=== PATIENT | female | born 1965 | race African-American/Black ===

== ENCOUNTER 2017-02-15 12:06 | Emergency (ER) | payer OTHER ==
[2017-02-15 12:16] VITALS: BP 141/74; PULSE 80; TEMP 98.2; BMI 28.2
--- NOTE | 2017-02-15 13:39 | PDOC ---
History of Present Illness - General Chief Complaint: Pain, Acute Stated Complaint: SWOLLEN LT ARM Time Seen by Provider: 02/15/17 13:21 History Source: Patient Exam Limitations: No Limitations - History of Present Illness Initial Comments: 02/15/17 14:05 Had lab drawn 2 days ago and [facility], and since that time has had swelling, ecchymoses, and pain to her left forearm extending to her wrist. Discussed case with on the phone who recommended coming to the emergency department for evaluation of possible studies. Patient denies numbness to fingers however has some tenderness to the medial aspect of her hand. Severity: reports: mild, moderate Pain Location: reports: upper extremity (left forearm) Modifying Factors: improves with: None, cold therapy Past History - Travel Traveled outside of the country in the last 30 days: No Close contact w/someone who was outside of country & ill: No - Past Medical History Allergies/Adverse Reactions: Allergies Allergy/AdvReac Type Severity Reaction Status Date / Time No Known Allergies Allergy Verified 02/15/17 12:16 Home Medications: Ambulatory Orders No Home Medications 05/18/13 Docusate Sodium [Colace -] 100 mg PO BID #14 capsule 07/22/15 Ferrous Sulfate [Feosol] 325 mg PO TID #21 tablet 07/22/15 Levofloxacin [Levaquin -] 750 mg PO DAILY #7 tablet 07/22/15 Sodium Chloride Nasal [place] [[place] Nasal [place] -] 2 spray NS TID PRN #1 bottle 07/22/15 Other medical history: PATIENT DENIES MEDICAL HISTORY - Surgical History Abdominal Surgery: (TUBES TIED) Orthopedic Surgery: Yes (rt knee and rt shoulder) - Psycho/Social/Smoking Cessation Hx Anxiety: No Suicidal Ideation: No Smoking Status: No Smoking History: Never smoked Number of Cigarettes Smoked Daily: 0 Hx Alcohol Use: No Drug/Substance Use Hx: No Substance Use Type: None Review of Systems - Review of Systems Able to Perform ROS?: Yes Comments:: 02/15/17 14:09 Is the patient limited Portuguese proficient: Yes Constitutional: Yes: See HPI. No: Symptoms Reported HEENTM: No: Symptoms Reported Respiratory: No: Symptoms reported Musculoskeletal: Yes: Symptoms Reported, See HPI, Joint Swelling Integumentary: Yes: Symptoms Reported Neurological: Yes: Symptoms reported Endocrine: No: Symptoms Reported All Other Systems: Reviewed and Negative *Physical Exam - Vital Signs Last Vital Signs Temp Pulse Resp BP Pulse Ox 98.2 F 80 18 141/74 100 02/15/17 12:13 02/15/17 12:13 02/15/17 12:13 02/15/17 12:13 02/15/17 12:13 - Physical Exam General Appearance: Yes: Nourished, Appropriately Dressed, Apparent Distress, Mild Distress HEENT: positive: [place], Normal ENT Inspection, TMs Normal, Pharynx Normal Neck: positive: Supple Extremity: positive: Normal Capillary Refill, Normal Range of Motion (WITH TENDERNESS TO antecub and extending down to volar wrist. Full range of motion of fingers, strong grasp, flexion and extension against resistance. Neurovascular intact). negative: Normal Inspection Integumentary: positive: Swelling, Ecchymosis, Bruising (hematoma palpable to the volar aspect of the forearm extending from antecubital fossa that to mid forearm approximately 15 cm. Of ecchymoses extending to wrist joint) Neurologic: positive: trauma director II-XII NML intact Progress Note - Progress Note Progress Note: Hematoma left forearm, no evidence of deep vein issue or compartment syndrome, full range of motion . *DC/Admit/Observation/Transfer Diagnosis at time of Disposition: Hematoma - Discharge Dispostion Disposition: HOME Condition at time of disposition: Stable Admit: No - Referrals Referrals: Jung Morales MD [Primary Care Provider] - - Patient Instructions Printed Discharge Instructions: DI for Hematoma (Bruise) Additional Instructions: Rest, ice to area on and off for 15 minutes 4-6 times a day Avoid heavy lifting or exercise until pain and swelling is resolved or until further directed Keep area highly elevated to reduce swelling Use splints/Matthew wrap as directed Followup with orthopedist in one to 2 days if not improving, if significantly improved may wait one week for followup with orthopedist May use ibuprofen 2-200 mg tablets every 6 hours as needed for pain
[2017-02-15] MEDS ORDERED: IBUPROFEN 600 MG TABLET (FP) PO ONE ×2 (13:52→13:54)
== END 2017-02-15 14:10 | disposition home or self-care (01) ==
LOC: JERFT 12:06
DX: L76.32 Postprocedural hematoma of skin and subcutaneous tissue following other procedure (principal); Y84.8 Other medical procedures as the cause of abnormal reaction of the patient, or of later complication, without mention of misadventure at the time of the procedure
CPT/HCPCS: 99281-25

== ENCOUNTER 2022-04-06 04:06 | Emergency (ER) | payer BC ==
[2022-04-06 04:36] VITALS: BMI 29.2
[2022-04-06] MEDS ORDERED: FAMOTIDINE 20 MG/50 ML IVPB 20 MG/50 ML MG IVPB ONE ×2 (04:59→05:40)
[2022-04-06 06:28] LABS: BASO % 0.8 % (0-2.0); EOS % 1.8 % (0-4.5); HEMATOCRIT 35.8 % (32.4-45.2); LYMPH % 38.3 % (8-40); MCH 28.9 pg (25.7-33.7); MCHC 33.4 g/dl (32.0-36.0); MEAN CELL VOLUME 86.3 fl (80-96); MEAN PLT VOLUME 10.7 fl (7.5-11.1); NEUT % 51.1 % (42.8-82.8); PLATELET COUNT 143 10^3/uL (134-434); RBC 4.15 M/mm3 (3.60-5.2); WHITE BLOOD COUNT 4.3 K/mm3 (4.0-10.0)
[2022-04-06 06:29] LABS: INR 1.03 (0.83-1.09); PROTHROMBIN TIME (PATIENT) 11.8 SEC (9.7-13.0)
[2022-04-06 06:32] LABS: ACTIVATED PTT 29.1 SECONDS (25.2-36.5)
[2022-04-06 06:38] LABS: ALBUMIN 3.7 g/dl (3.4-5.0); CALCIUM 9.4 mg/dL (8.5-10.1)
[2022-04-06 06:39] LABS: BLOOD UREA NITROGEN 14.5 mg/dL (7-18); MAGNESIUM 2.2 mg/dL (1.8-2.4)
[2022-04-06 06:42] LABS: CREATININE 0.9 mg/dL (0.55-1.3); PHOSPHOROUS 3.2 mg/dL (2.5-4.9)
[2022-04-06 06:43] LABS: BILIRUBIN,TOTAL 0.3 mg/dL (0.2-1); TOT PROT 7.6 g/dl (6.4-8.2)
[2022-04-06] MEDS ORDERED: methylPREDNISolone NA SUCC 125 MG/2 ML VIAL IVPB ONE (07:03)
[2022-04-06] MEDS ORDERED: methylPREDNISolone NA SUCC 125 MG/2 ML VIAL ONE (08:38)
[2022-04-06 08:46] VITALS: BP 135/55; PULSE 64; RESP 16; TEMP 97.9
== END 2022-04-06 08:47 | disposition home or self-care (01) ==
LOC: JER 04:06
PROC: 3E033NZ Introduction of Analgesics, Hypnotics, Sedatives into Peripheral Vein, Percutaneous Approach (ICD-10-PCS; principal; 2022-04-06)
PROC: 3E033GC Introduction of Other Therapeutic Substance into Peripheral Vein, Percutaneous Approach (ICD-10-PCS; 2022-04-06)
DX: T78.40XA Allergy, unspecified, initial encounter (principal)
CPT/HCPCS: 36415; 70450-TC; 71046-TC-FY; 80053; 83735; 84100; 84484; 85025; 85610; 85730; 93005; 93010; 99285-25

== ENCOUNTER 2022-06-11 03:43 | Emergency (ER) | payer BC ==
[2022-06-11 03:55] VITALS: BP 169/83; PULSE 79; RESP 20; TEMP 97.5; BMI 29.2
[2022-06-11] MEDS ORDERED: FAMOTIDINE 20 MG/50 ML IVPB 20 MG/50 ML MG IVPB ONE ×2 (04:00→04:33)
[2022-06-11] MEDS ORDERED: MAG HYDROX/AL HYDROX/SIMETH -MYLANTA- ORAL SUSPENSION PO ONE (04:00)
[2022-06-11] MEDS ORDERED: ACETAMINOPHEN 1000 MG/100 ML BAG IVPB ONE (04:00)
[2022-06-11] MEDS ORDERED: SODIUM CHLORIDE 0.9% 500 ML INFUS.BAG IV ONE (04:32)
[2022-06-11] MEDS ORDERED: ACETAMINOPHEN INJECTION 100 ML IVPB ONE (04:33)
[2022-06-11] MEDS ORDERED: MAG HYDROX/AL HYDROX/SIMETH 30 ML UNIT-DOSE CUP ONE (04:33)
[2022-06-11 04:48] LABS: BASO % 0.4 % (0-2.0); EOS % 2.1 % (0-4.5); HEMATOCRIT 33.3 % (32.4-45.2); HEMOGLOBIN 11.5 GM/dL (10.7-15.3); MCH 29.2 pg (25.7-33.7); MCHC 34.4 g/dl (32.0-36.0); MEAN CELL VOLUME 84.9 fl (80-96); MEAN PLT VOLUME 9.9 fl (7.5-11.1); MONO % 8.2 % (3.8-10.2); NEUT % 51.3 % (42.8-82.8); PLATELET COUNT 165 10^3/uL (134-434); RBC 3.92 M/mm3 (3.60-5.2); RDW 14.8 % (11.6-15.6); WHITE BLOOD COUNT 4.7 K/mm3 (4.0-10.0)
[2022-06-11 04:54] LABS: INR 1.07 (0.83-1.09); PROTHROMBIN TIME (PATIENT) 12.3 SEC (9.7-13.0)
[2022-06-11 04:57] LABS: ACTIVATED PTT 35.3 SECONDS (25.2-36.5)
[2022-06-11 05:08] LABS: ALBUMIN 3.5 g/dl (3.4-5.0); BLOOD UREA NITROGEN 11.5 mg/dL (7-18); CALCIUM 9.5 mg/dL (8.5-10.1)
[2022-06-11 05:11] LABS: CREATININE 0.8 mg/dL (0.55-1.3)
[2022-06-11 05:13] LABS: BILIRUBIN,TOTAL 0.3 mg/dL (0.2-1); TOT PROT 7.7 g/dl (6.4-8.2)
[2022-06-11] MEDS ORDERED: PANTOPRAZOLE 40 MG TABLET PO ONE ×2 (05:33→05:34)
== END 2022-06-11 05:51 | disposition home or self-care (01) ==
LOC: JER 03:43
PROC: 3E033GC Introduction of Other Therapeutic Substance into Peripheral Vein, Percutaneous Approach (ICD-10-PCS; principal; 2022-06-11)
DX: R10.13 Epigastric pain (principal)
CPT/HCPCS: 0241U-QW; 36415; 71045-TC-FY; 80053; 83690; 84484; 85025; 85610; 85730; 93005; 93010; 99285-25